=== PATIENT | female | born 1985 | race African-American/Black ===

== ENCOUNTER 2018-06-22 17:44 | Emergency (ER) | payer OTHER ==
--- OUTSIDE RECORDS SUMMARY | 2018-06-22 17:47 | XMS REPORT ---
:1985 [facility] Address [address] [place] [address] Dr. Saeed [address] [place] [id number] Care Team Providers Name Role Phone SATNAM ROGERS Unavailable Unavailable DR CHERELLE VALDEZ Unavailable Unavailable Problems This patient has no known problems. Allergies, Adverse Reactions, Alerts This patient has no known allergies or adverse reactions. Medications This patient has no known medications. Encounters Start End Encounter Admission Attending Care Care Encounter Date/Time Date/Time Type Type Clinicians Facility Department ID 2017-05-21 2017-05-21 Emergency E SARA ROGERS [facility] [id number] 11:16:00 14:14:00 SATNAM 2017-05-20 2017-05-20 Emergency SARA SU [facility] [id number] 10:14:00 10:30:00 CHERELLE
[2018-06-22] MEDS ORDERED: HYDROCODONE/APAP 5/325 MG TAB ONE ×2 (18:52→19:28)
--- NOTE | 2018-06-22 19:01 | ER ---
Nurse's Notes [facility] Name: Winston Hussein Age: 32 yrs Sex: Female : 1985 Arrival Date: 06/22/2018 Time: 17:46 Bed 14 Private MD: Diagnosis: Cyst of Bartholin's gland Presentation: 06/22 18:00 Presenting complaint: Patient states: left labia abscess, unknown if drainage is coming sv from that or vaginal. Pt is 13 weeks . Pt was seen at [facility] on \ Tue and sent home with Clindamycin and Tylenol #3. Transition of care: patient was not received from another setting of care. Onset of symptoms was June 19, 2018. Care prior to arrival: None. 18:00 Method Of Arrival: Ambulatory sv 18:00 Acuity: SINDY 3 sv 18:05 Risk Assessment: Do you want to hurt yourself or someone else? Patient reports no rb1 desire to harm self or others. Initial Sepsis Screen: Does the patient meet any 2 criteria? No. Patient's initial sepsis screen is negative. Does the patient have a suspected source of infection? No. Patient's initial sepsis screen is negative. 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 - Social history:: Smoking status: Patient/guardian denies using tobacco. - Ebola Screening: : No symptoms or risks identified at this time. Screenin:05 Abuse screen: Denies threats or abuse. Nutritional screening: No deficits noted. rb1 Tuberculosis screening: No symptoms or risk factors identified. Fall Risk None identified. Assessment: 18:05 General: Appears uncomfortable, Behavior is calm, cooperative, Denies fever. Pain: rb1 Complains of pain in left labia Pain currently is 10 out of 10 on a pain scale. Pain began 2-3 days ago. Neuro: Level of Consciousness is awake, alert, obeys commands, Oriented to person, place, time, situation. Cardiovascular: Capillary refill < 3 seconds is brisk in bilateral fingers. Respiratory: Airway is patent Respiratory effort is even, unlabored, Respiratory pattern is regular, symmetrical. GI: No signs and/or symptoms were reported involving the gastrointestinal system. : Reports burning with urination. Derm: Skin is dry, Skin is normal, Skin temperature is warm. Musculoskeletal: Swelling present in left labia. 18:05 Reassessment: Pt. saw the doctor on Tuesday and was prescribed antibiotics. rb1 18:50 Reassessment: Patient appears in no apparent distress at this time. Patient and/or rb1 family updated on plan of care and expected duration. Pain level reassessed. Patient is alert, oriented x 3, equal unlabored respirations, skin warm/dry/pink. 19:00 Reassessment: I went in to discharge the pt. and the pt./family asked to speak with the rb1 provider before being discharged. Provider notifiedd. 19:05 Reassessment: TEE Altamirano is at bedside talking with the pt. and family. rb1 Vital Signs: 18:07 BP 125 / 94; Pulse 130; Resp 24; Pulse Ox 100% ; Weight 65.77 kg; Height 5 ft. 3 in. sv (160.02 cm); Pain 0/10; 18:50 BP 132 / 82; Pulse 100; Resp 17; Pulse Ox 100% on R/A; rb1 19:25 BP 114 / 73; Pulse 94; Resp 16; Pulse Ox 100% on R/A; rb1 18:07 Body Mass Index 25.69 (65.77 kg, 160.02 cm) sv ED Course: 17:46 Patient arrived in ED. sb2 18:00 Arm band placed on right wrist. Patient placed in an exam room, on a stretcher. sv 18:04 Valarie Fraga, RN is Primary Nurse. rb1 18:05 Patient has correct armband on for positive identification. Placed in gown. Bed in low rb1 position. Call light in reach. Side rails up X 1. Pulse ox on. NIBP on. Warm blanket given. 18:07 Triage completed. sv 18:17 Elvis Altamirano NP is PHCP. pm1 18:17 Tal Ji MD is Attending Physician. pm1 19:17 pt questions. ERP at bedside for lengthy conversation, question and answer session. ak1 19:30 Patient did not have IV access during this emergency room visit. rb1 Administered Medications: 18:49 Drug: [place] 5 mg-325 mg 1 tabs Route: PO; rb1 19:18 Follow up: Response: No adverse reaction ak1 19:27 Drug: [place] 5 mg-325 mg 1 tabs Route: PO; rb1 19:27 Follow up: Response: Medication administered at discharge. rb1 Outcome: 19:01 Discharge ordered by MD. pm1 19:30 Patient left the ED. rb1 19:30 Discharged to home ambulatory, with family. rb1 19:30 Condition: stable 19:30 Discharge instructions given to patient, Instructed on discharge instructions, follow up and referral plans. Demonstrated understanding of instructions, follow-up care, Prescriptions given X none Signatures: Yuliana Campbell RN RN sv Krenek, Amber, RN RN ak1 Valarie Fraga RN RN rb1 Elvis Altamirano, TEE DAYCARE TEACHER pm1 Angie Pereira2
--- NOTE | 2018-06-22 19:01 | EDPHYS ---
Physician Documentation [facility] Name: Winston Hussein Age: 32 yrs Sex: Female : 1985 Arrival Date: 06/22/2018 Time: 17:46 Bed 14 Private MD: ED Physician Tal Ji HPI: 06/22 18:58 This 32 yrs old Black Female presents to ER via Ambulatory with complaints of pm1 Bartholin's Cyst. 18:58 The patient presents with left sided Bartholin's cyst. Onset: The symptoms/episode pm1 began/occurred 3 day(s) ago. Modifying factors: The symptoms are alleviated by prescription medications, the symptoms are aggravated by touching area. Associated signs and symptoms: Pertinent negatives: dysuria, fever, vaginal bleeding. Severity of symptoms: in the emergency department the symptoms are actually worse. The patient is sexually active. The patient has experienced similar episodes in the past, several times. The patient has been recently seen by a physician: Patient presented to [place] ER on Tuesday for evaluation of Bartholin cyst that started on Tuesday. Patient was prescribed clindamycin at that time. Went to the [place] ER yesterday and was seen by her OB, Dr. Nowak in the ER and was prescribed pain medications, Tylenol #3. Patient scheduled a follow up on Tuesday with Dr. Nowak. Patient with some discharge and was not certain if the Bartholin cyst had ruptured. 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 - Social history:: Smoking status: Patient/guardian denies using tobacco. - Ebola Screening: : No symptoms or risks identified at this time. ROS: 18:58 Positive for left labial swelling and pain, Negative for burning with urination. pm1 18:58 Constitutional: Negative for fever, chills, and weight loss, Eyes: Negative for injury, pain, redness, and discharge, ENT: Negative for injury, pain, and discharge, Neck: Negative for injury, pain, and swelling, Cardiovascular: Negative for chest pain, palpitations, and edema, Respiratory: Negative for shortness of breath, cough, wheezing, and pleuritic chest pain, Abdomen/GI: Negative for abdominal pain, nausea, vomiting, diarrhea, and constipation, Back: Negative for injury and pain, MS/Extremity: Negative for injury and deformity, Skin: Negative for injury, rash, and discoloration, Neuro: Negative for headache, weakness, numbness, tingling, and seizure. Exam: 18:58 Head/Face: Normocephalic, atraumatic. Neck: Trachea midline, no thyromegaly or masses pm1 palpated, and no cervical lymphadenopathy. Supple, full range of motion without nuchal rigidity, or vertebral point tenderness. No Meningismus. Chest/axilla: Normal chest wall appearance and motion. Nontender with no deformity. No lesions are appreciated. Cardiovascular: Regular rate and rhythm with a normal S1 and S2. No gallops, murmurs, or rubs. Normal PMI, no JVD. No pulse deficits. Respiratory: Lungs have equal breath sounds bilaterally, clear to auscultation and percussion. No rales, rhonchi or wheezes noted. No increased work of breathing, no retractions or nasal flaring. Abdomen/GI: Soft, non-tender, with normal bowel sounds. No distension or tympany. No guarding or rebound. No evidence of tenderness throughout. Back: No spinal tenderness. No costovertebral tenderness. Full range of motion. 18:58 Skin: Warm, dry with normal turgor. Normal color with no rashes, no lesions, and no evidence of cellulitis. MS/ Extremity: Pulses equal, no cyanosis. Neurovascular intact. Full, normal range of motion. 18:58 Constitutional: The patient appears in no acute distress, alert, awake, well developed, well hydrated, well groomed, well nourished, uncomfortable. 18:58 : Pelvic Exam: External exam: Bartholin's cyst present, no erythema, no lesions, no ulcerations, no warts seen, discharge, white, BB RN. 18:58 Neuro: Orientation: is normal, Motor: moves all fours. Vital Signs: 18:07 BP 125 / 94; Pulse 130; Resp 24; Pulse Ox 100% ; Weight 65.77 kg; Height 5 ft. 3 in. sv (160.02 cm); Pain 0/10; 18:50 BP 132 / 82; Pulse 100; Resp 17; Pulse Ox 100% on R/A; rb1 19:25 BP 114 / 73; Pulse 94; Resp 16; Pulse Ox 100% on R/A; rb1 18:07 Body Mass Index 25.69 (65.77 kg, 160.02 cm) sv MDM: 18:24 Patient medically screened. pm1 18:58 Data reviewed: vital signs. Data interpreted: Pulse oximetry: on room air is 100 %. pm1 Interpretation: normal. Counseling: I had a detailed discussion with the patient and/or guardian regarding: the historical points, exam findings, and any diagnostic results supporting the discharge/admit diagnosis, the need for outpatient follow up, for definitive care, an OB/Gyne specialist, to return to the emergency department if symptoms worsen or persist or if there are any questions or concerns that arise at home. 19:00 ED course: Patient seen by OB yesterday. Patient currently on abx therapy and has pain pm1 medications at home. Recommended patient to call her OB and schedule an appointment for evaluation sooner. Patient V/S WNLs, drainage of Bartholin's cyst is nonemergent, and patient is currently already on abx, therefore patient can follow up on outpatient evaluation with her OB for definitive treatment. Administered Medications: 18:49 Drug: Justice 5 mg-325 mg 1 tabs Route: PO; rb1 19:18 Follow up: Response: No adverse reaction ak1 19:27 Drug: [place] 5 mg-325 mg 1 tabs Route: PO; rb1 19:27 Follow up: Response: Medication administered at discharge. rb1 Disposition: 06/23 07:27 Co-signature as Attending Physician, Tal Ji MD I agree with the assessment and halie plan of care. Disposition: 06/22/18 19:01 Discharged to Home. Impression: Cyst of Bartholin's gland. - Condition is Stable. - Discharge Instructions: Bartholin Cyst or Abscess. - Medication Reconciliation Form, Thank You Letter, Antibiotic Education, Prescription Opioid Use form. - Follow up: Emergency Department; When: As needed; Reason: Worsening of condition. Follow up: Private Physician; When: 2 - 3 days; Reason: Recheck today's complaints, Continuance of care, Re-evaluation by your physician. - Problem is new. - Symptoms have improved. - Notes: Continue taking the antibiotics and pain medications prescribed to you on Tuesday and Tuesday Signatures: Yuliana Campbell, RN RN Tal Winchester MD MD cha Barber, Rebecca, RN RN rb1 Elvis Altamirano NP POLISHER ALUMINUM pm1 Keisha Redd RN ak1 Corrections: (The following items were deleted from the chart) 06/22 19:30 19:01 06/22/2018 19:01 Discharged to Home. Impression: Cyst of Bartholin's gland. rb1 Condition is Stable. Forms are Medication Reconciliation Form, Thank You Letter, Antibiotic Education, Prescription Opioid Use. Follow up: Emergency Department; When: As needed; Reason: Worsening of condition. Follow up: Private Physician; When: 2 - 3 days; Reason: Recheck today's complaints, Continuance of care, Re-evaluation by your physician. Problem is new. Symptoms have improved. pm1
== END 2018-06-22 19:30 | disposition home or self-care (01) ==
LOC: ER 17:44
DX: N75.0 Cyst of Bartholin's gland (principal)
CPT/HCPCS: 99283

== ENCOUNTER 2018-09-05 17:48 | Emergency (ER) | payer OTHER ==
--- OUTSIDE RECORDS SUMMARY | 2018-09-05 17:51 | XMS REPORT | Summary of Care ---
:1985 Author Organization [facility] Address [address], [place] [address]- Encounter HQ Anjali(TINO) [id number] Date(s): 10/03/15 - 10/03/15 [facility] [address] [place] [address]- Discharge Diagnosis: Streptococcal pharyngitis Discharge Disposition: Home Attending Physician: Son, Satya Burnham DO Vital Signs Most recent to oldest [Reference Range]: 1 2 Height 157.48 cm (10/03/15 8:33 AM) Temperature Oral [96.4-99.1 DegF] 99.0 DegF 97.9 DegF (10/03/15 10:00 AM) (10/03/15 8:33 AM) Blood Pressure [90-140/60-90 mmHg] 101/67 mmHg 111/82 mmHg (10/03/15 10:00 AM) (10/03/15 8:33 AM) Respiratory Rate [14-20 BRMIN] 20 BRMIN 18 BRMIN (10/03/15 10:00 AM) (10/03/15 8:33 AM) Peripheral Pulse Rate [60-100 bpm] 95 bpm 91 bpm (10/03/15 10:00 AM) (10/03/15 8:33 AM) Weight 62.273 kg (10/03/15 8:33 AM) Body Mass Index 25.11 m2 (10/03/15 8:33 AM) Problem List No data available for this section Allergies, Adverse Reactions, Alerts Substance Reaction Severity Status NKDA Active Medications amoxicillin 500 mg oral tablet 500 mg=1 tab, PO, BID, X 10 day, # 20 tab, 0 Refill(s) Start Date: 10/03/15 Stop Date: 10/13/15 Status: Ordered Results IMMUNOLOGY Most recent to oldest [Reference Range]: 1 [place] Scr [Negative] Negative (10/03/15 8:51 AM) RAPID Most recent to oldest [Reference Range]: 1 Grp A Strep Scr [Negative] Positive *ABN* (10/03/15 8:51 AM) Immunizations No data available for this section Procedures Procedure Date Related Diagnosis Body Site section Social History Social History Type Response Smoking Status Never smoker; Exposure to Tobacco Smoke None; Cigarette Smoking Last 365 Days No; Reg Smoking Cessation Counseling No Assessment and Plan No data available for this section
--- OUTSIDE RECORDS SUMMARY | 2018-09-05 17:51 | XMS REPORT | Summary of Care ---
:1985 Author Encounter PATEL Alba(TINO) [id number] Date(s): 04/27/15 - 04/27/15 [facility] [address] [place] [address]- Discharge Diagnosis: Aphthous ulcer Discharge Disposition: Home Physician Attending: Karen Rosenthal DO Vital Signs Most recent to oldest [Reference Range]: 1 Temperature Oral [96.4-99.1 DegF] 97.9 DegF (04/27/15 4:33 PM) Blood Pressure [90-140/60-90 mmHg] 122/75 mmHg (04/27/15 4:33 PM) Respiratory Rate [14-20 BRMIN] 18 BRMIN (04/27/15 4:33 PM) Peripheral Pulse Rate [60-100 bpm] 78 bpm (04/27/15 4:33 PM) Weight 60.364 kg (04/27/15 4:33 PM) Problem List No data available for this section Allergies, Adverse Reactions, Alerts Substance Reaction Severity Status NKDA Active Medications Orajel 10% mucous membrane gel 1 appl, TOP, QID, X 7 day, # 10 gm, 0 Refill(s) Start Date: 04/27/15 Stop Date: 05/04/15 Status: Ordered Results No data available for this section Immunizations No data available for this section Procedures Procedure Date Related Diagnosis Body Site section Social History Social History Type Response Smoking Status Never smoker; Exposure to Tobacco Smoke None; Cigarette Smoking Last 365 Days No; Reg Smoking Cessation Counseling No Assessment and Plan No data available for this section
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
--- OUTSIDE RECORDS SUMMARY | 2018-09-05 17:52 | XMS REPORT ---
:1985 [facility] Address [address] [place] [address] Dr. Saeed [address] [place] [address] Care Team Providers Name Role Phone SATNAM [...] ID 2017-05-21 2017-05-21 Emergency E SARA ROGERS [facility] [id number] 11:16:00 14:14:00 SATNAM 2017-05-20 2017-05-20 Emergency SARA SU [facility] [id number] 10:14:00 10:30:00 CHERELLE
--- OUTSIDE RECORDS SUMMARY | 2018-09-05 17:52 | XMS REPORT | Summary of Care ---
:1985 Author Organization [facility] Address [address] [place], [place] [address]- Encounter HQ Steve_ollie(TINO) [id number] Date(s): 09/08/16 - 09/08/16 [facility] [address] [place] [address]- Discharge Diagnosis: Bartholin's gland abscess Discharge Disposition: Home or Self Care Attending Physician: Warren Casanova MD Vital Signs Most recent to oldest [Reference Range]: 1 2 Height 165.1 cm (09/08/16 1:50 PM) Temperature Oral [96.4-99.1 DegF] 97.9 DegF 97.9 DegF (09/08/16 2:47 PM) (09/08/16 1:50 PM) Blood Pressure [90-140/60-90 mmHg] 103/76 mmHg 112/92 mmHg (09/08/16 2:47 PM) (09/08/16 1:50 PM) Respiratory Rate [14-20 BRMIN] 18 BRMIN 20 BRMIN (09/08/16 2:47 PM) (09/08/16 1:50 PM) Peripheral Pulse Rate [60-100 bpm] 74 bpm 72 bpm (09/08/16 2:47 PM) (09/08/16 1:50 PM) Weight 61.364 kg (09/08/16 1:50 PM) Body Mass Index 22.51 m2 (09/08/16 1:50 PM) Problem List Condition Effective Dates Status Health Status Informant Tooth avulsion(Confirmed) 1992 Resolved Allergies, Adverse Reactions, Alerts Substance Reaction Severity Status NKDA Active Medications Bactrim DS 800 mg- 160 mg oral tablet 1 tab, PO, BID, X 7 day, # 14 tab, 0 Refill(s) Start Date: 09/08/16 Stop Date: 09/15/16 Status: Orderedtramadol 50 mg oral tablet 50 mg=1 tab, PO, BID, X 15 day, # 30 tab, 0 Refill(s) Start Date: 09/08/16 Stop Date: 09/23/16 Status: Ordered Results No data available for [...]
--- OUTSIDE RECORDS SUMMARY | 2018-09-05 17:52 | XMS REPORT | Summary of Care ---
:1985 Author Organization [facility] Address [address], [place] [address]- Encounter HQ Steve_ollie([facility]) [id number] Date(s): 03/05/17 - 03/05/17 [facility] [address] [place] [address]- Discharge Diagnosis: Gingival swelling Discharge Diagnosis: Impacted third molar tooth Discharge Disposition: Home or Self Care Attending Physician: Kali Holbrook MD Vital Signs Most recent to oldest [Reference Range]: 1 2 Temperature Oral [96.4-99.1 DegF] 98.3 DegF 98.8 DegF (03/05/17 5:27 PM) (03/05/17 3:37 PM) Blood Pressure [90-140/60-90 mmHg] 106/71 mmHg 109/73 mmHg (03/05/17 5:27 PM) (03/05/17 3:37 PM) Respiratory Rate [14-20 BRMIN] 20 BRMIN 20 BRMIN (03/05/17 5:27 PM) (03/05/17 3:37 PM) Peripheral Pulse Rate [60-100 bpm] 66 bpm 93 bpm (03/05/17 5:27 PM) (03/05/17 3:37 PM) Weight 63.636 kg (03/05/17 3:37 PM) Problem List Condition Effective Dates Status Health Status Informant Tooth avulsion(Confirmed) 1992 Resolved Allergies, Adverse Reactions, Alerts Substance Reaction Severity Status NKDA Active Medications ibuprofen 800 mg oral tablet 800 mg=1 tab, PO, Q8H, PRN Pain, Take with food, X 7 day, # 21 tab, 0 Refill(s) Start Date: 03/05/17 Stop Date: 03/12/17 Status: Orderedpenicillin V potassium 500 mg oral tablet 500 mg=1 tab, PO, Q6H, X 7 day, # 28 tab, 0 Refill(s) Start Date: 03/05/17 Stop Date: 03/12/17 Status: Ordered Results No data available for [...]
--- OUTSIDE RECORDS SUMMARY | 2018-09-05 17:52 | XMS REPORT | Summary of Care ---
:1985 Author Organization [facility] Address [address], [place] [address]- Encounter HQ Bensonr_ollie(FIN) [id number] Date(s): 05/18/17 - 05/18/17 [facility] [address] [place] [address]- Discharge Disposition: LBTC Left B4 Treatment Cmplt-MSE Cmplt Attending Physician: Warren Casanova MD Vital Signs Most recent to oldest [Reference Range]: 1 Height 157.48 cm (05/18/17 12:07 PM) Temperature Oral [96.4-99.1 DegF] 98.4 DegF (05/18/17 12:07 PM) Blood Pressure [90-140/60-90 mmHg] 112/79 mmHg (05/18/17 12:07 PM) Respiratory Rate [14-20 BRMIN] 20 BRMIN (05/18/17 12:07 PM) Peripheral Pulse Rate [60-100 bpm] 87 bpm (05/18/17 12:07 PM) Weight 65.909 kg (05/18/17 12:07 PM) Body Mass Index 26.58 m2 (05/18/17 12:07 PM) Problem List Condition Effective Dates Status Health Status Informant Tooth avulsion(Confirmed) 1992 Resolved Allergies, Adverse Reactions, Alerts Substance Reaction Severity Status NKDA Active Medications morphine Sulfate 4 mg, Route: IM, ONCE, Dosing Weight 65.909, kg, Start date: 05/18/17 13:07:00 CDT, Stop date: 05/18/17 13:07:00 CDT Start Date: 05/18/17 Stop Date: 05/18/17 Status: Discontinuedmorphine Sulfate 4 mg, Route: IVP, ONCE, Dosing Weight 65.909, kg, Priority: STAT, Start date: 12:24:00 CDT,Stop date: 05/18/17 12:24:00 CDT Start Date: 05/18/17 Stop Date: 05/18/17 Status: Discontinued Results No data available for this section [...]
--- OUTSIDE RECORDS SUMMARY | 2018-09-05 17:52 | XMS REPORT | Summary of Care ---
:1985 Author Organization [facility] Address [address], [place] [address]- Encounter HQ Anjali(TINO) [id number] Date(s): 01/13/16 - 01/13/16 [facility] [address] [place] [address]- Discharge Diagnosis: Knee pain Discharge Diagnosis: Back pain Discharge Disposition: Home Attending Physician: Esequiel Lucas MD Vital Signs Most recent to oldest [Reference Range]: 1 2 Temperature Oral [96.4-99.1 DegF] 98.0 DegF 98.6 DegF (01/13/16 10:00 AM) (01/13/16 8:27 AM) Blood Pressure [90-140/60-90 mmHg] 99/61 mmHg 124/88 mmHg (01/13/16 10:00 AM) (01/13/16 8:27 AM) Respiratory Rate [14-20 BRMIN] 18 BRMIN 18 BRMIN (01/13/16 10:00 AM) (01/13/16 8:27 AM) Peripheral Pulse Rate [60-100 bpm] 87 bpm 96 bpm (01/13/16 10:00 AM) (01/13/16 8:27 AM) Weight 63.636 kg (01/13/16 8:27 AM) Problem List Condition Effective Dates Status Health Status Informant Tooth avulsion(Confirmed) 1992 Resolved Allergies, Adverse Reactions, Alerts Substance Reaction Severity Status NKDA Active Medications Flexeril 10 mg oral tablet 10 mg, PO, TID, PRN Muscle Spasm, X 10 day, # 30 tab, 0 Refill(s), Pharmacy: [facility] [id number] Start Date: 01/13/16 Stop Date: 01/23/16 Status: Ordered Results No data available for [...]
--- NOTE | 2018-09-05 18:36 | EDPHYS ---
Physician Documentation [facility] Name: Winston Hussein Age: 33 yrs Sex: Female : 1985 Arrival Date: 09/05/2018 Time: 17:54 Bed 9 Private MD: ED Physician Roverto Moon HPI: 09/05 18:30 This 33 yrs old Black Female presents to ER via Wheelchair with complaints of Leg Pain. rn 18:30 The patient presents with pain. The complaints affect the right gluteus. Onset: The rn symptoms/episode began/occurred 1 week(s) ago. Modifying factors: The symptoms are alleviated by OTC meds, remaining still, the symptoms are aggravated by weight bearing. Severity of symptoms: At their worst the symptoms were mild, in the emergency department the symptoms have improved. The patient has not experienced similar symptoms in the past. Reports 1 week intermittent right gluteal pain, worse sometimes when walking, no fever, no trauma, no weakness/numbness, no back pain, no skin changes, saw her doctor, told was pinched nerve, still feeling it so came in for eval. . 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 - Social history:: Smoking status: Patient/guardian denies using tobacco. - Ebola Screening: : Patient negative for fever greater than or equal to 101.5 degrees Fahrenheit, and additional compatible Ebola Virus Disease symptoms Patient denies exposure to infectious person Patient denies travel to an Ebola-affected area in the 21 days before illness onset No symptoms or risks identified at this time. - Family history:: not pertinent. - Hospitalizations: : No recent hospitalization is reported. ROS: 18:30 Constitutional: Negative for fever, chills, and weight loss, Eyes: Negative for injury, rn pain, redness, and discharge, Neck: Negative for injury, pain, and swelling, Cardiovascular: Negative for chest pain, palpitations, and edema, Respiratory: Negative for shortness of breath, cough, wheezing, and pleuritic chest pain, Abdomen/GI: Negative for abdominal pain, nausea, vomiting, diarrhea, and constipation, Back: Negative for injury and pain, MS/Extremity: Negative for injury and deformity, Skin: Negative for injury, rash, and discoloration, Neuro: Negative for headache, weakness, numbness, tingling, and seizure. Exam: 18:30 Constitutional: This is a well developed, well nourished patient who is awake, alert, rn and in no acute distress. Abdomen/GI: soft, non-tender, gravid uterus Skin: Warm, dry with normal turgor. Normal color with no rashes, no lesions, and no evidence of cellulitis. MS/ Extremity: Pulses equal, no cyanosis. Neurovascular intact. Full, normal range of motion. Equal circumference. NO pain at all with ROM of right leg (flexion or extension or rotation). Neuro: Awake and alert, GCS 15, oriented to person, place, time, and situation. Cranial nerves II-XII grossly intact. Motor strength 5/5 in all extremities. Sensory grossly intact. Cerebellar exam normal. Normal gait. Vital Signs: 18:21 BP 115 / 81; Pulse 76; Resp 14; Temp 98.2; Pulse Ox 99% on R/A; Weight 79.38 kg; Height ch 5 ft. 6 in. (167.64 cm); Pain 10/10; 18:21 Body Mass Index 28.25 (79.38 kg, 167.64 cm) ch MDM: 18:25 Patient medically screened. jr8 18:30 Differential diagnosis: muscle spasm, pinched nerve, radiculopathy. Data reviewed: rn vital signs, nurses notes, and as a result, I will discharge patient. Counseling: I had a detailed discussion with the patient and/or guardian regarding: the historical points, exam findings, and any diagnostic results supporting the discharge/admit diagnosis, the need for outpatient follow up, to return to the emergency department if symptoms worsen or persist or if there are any questions or concerns that arise at home. Special discussion: I discussed with the patient/guardian in detail that at this point there is no indication for admission to the hospital. It is understood, however, that if the symptoms persist or worsen the patient needs to return immediately for re-evaluation. Administered Medications: No medications were administered Disposition: 09/05/18 18:35 Discharged to Home. Impression: Pain in right leg. - Condition is Stable. - Discharge Instructions: Musculoskeletal Pain, Pain Without a Known Cause. - Medication Reconciliation Form, Thank You Letter, Antibiotic Education, Prescription Opioid Use form. - Follow up: Private Physician; When: As needed; Reason: Recheck today's complaints, Re-evaluation by your physician. - Problem is new. - Symptoms have improved. Signatures: Lily Liu RN RN Roverto Moon MD MD rn Roszak, Josh, PA PA [facility] Kera Lester RN RN hb Corrections: (The following items were deleted from the chart) 18:50 18:35 09/05/2018 18:35 Discharged to Home. Impression: Pain in right leg. Condition is hb Stable. Forms are Medication Reconciliation Form, Thank You Letter, Antibiotic Education, Prescription Opioid Use. Follow up: Private Physician; When: As needed; Reason: Recheck today's complaints, Re-evaluation by your physician. Problem is new. Symptoms have improved. rn
--- NOTE | 2018-09-05 18:36 | ER ---
Nurse's Notes [facility] Name: Winston Hussein Age: 33 yrs Sex: Female : 1985 Arrival Date: 09/05/2018 Time: 17:54 Bed 9 Private MD: Diagnosis: Pain in right leg Presentation: 09/05 18:20 Presenting complaint: Patient states: pain in my R buttock, started last week, hurts ch all down my leg and I cannot walk on it. I am , LMP April 2018. Transition of care: patient was not received from another setting of care. Onset of symptoms was August 29, 2018. Risk Assessment: Do you want to hurt yourself or someone else? Patient reports no desire to harm self or others. Initial Sepsis Screen: Does the patient meet any 2 criteria? No. Patient's initial sepsis screen is negative. Does the patient have a suspected source of infection? No. Patient's initial sepsis screen is negative. Care prior to arrival: None. 18:20 Method Of Arrival: Wheelchair 18:20 Acuity: SINDY 5 ch Triage Assessment: 18:21 General: Appears in no apparent distress. comfortable, Behavior is calm, cooperative, ch appropriate for age. 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 - Social history:: Smoking status: Patient/guardian denies using tobacco. - Ebola Screening: : Patient negative for fever greater than or equal to 101.5 degrees Fahrenheit, and additional compatible Ebola Virus Disease symptoms Patient denies exposure to infectious person Patient denies travel to an Ebola-affected area in the 21 days before illness onset No symptoms or risks identified at this time. - Family history:: not pertinent. - Hospitalizations: : No recent hospitalization is reported. Vital Signs: 18:21 BP 115 / 81; Pulse 76; Resp 14; Temp 98.2; Pulse Ox 99% on R/A; Weight 79.38 kg; Height 5 ft. 6 in. (167.64 cm); Pain 10/10; 18:21 Body Mass Index 28.25 (79.38 kg, 167.64 cm) ED Course: 17:54 Patient arrived in ED. mr 18:21 Triage completed. 18:21 Arm band placed on left wrist. Patient placed in an exam room, on a stretcher. 18:25 Arvin Gramajo PA is PHCP. jr8 18:25 Tal Ji MD is Attending Physician. jr8 18:29 Roverto Moon MD is Attending Physician. jr8 Administered Medications: No medications were administered Outcome: 18:35 Discharge ordered by . rn 18:50 Patient left the ED. hb Signatures: Lily Liu, RN RN SalNancy mr Roverto Moon MD MD rn Roszak, Josh, PA PA [facility] Kera Lester RN RN hb
== END 2018-09-05 18:50 | disposition home or self-care (01) ==
LOC: ER 17:48
DX: M79.604 Pain in right leg (principal)
CPT/HCPCS: 99281

== ENCOUNTER 2019-02-09 11:01 | Emergency (ER) | payer OTHER ==
--- OUTSIDE RECORDS SUMMARY | 2019-02-09 11:04 | XMS REPORT | Continuity of Care Document ---
[...] day, # 30 tab, 0 Refill(s), Pharmacy: [facility] [id number] naproxen 500 mg 500 mg=1 Active [place] [...] Impression: 1. No acute osseous abnormality. IMMUNOLOGY [place] Scr Negative Negative 10/03 /2014 [place] (10/03/15 8:51 AM) [place] RAPID Grp A Positive Negative 10/03 St[place] Scr /2014 [place] *ABN* [place] (10/03/15 8:51 AM) Vital Signs Vital Sign Value Date Comments Source BMI Calculated 26.58 05/18/2017 [place] Height 157.48 cm 05/18/2017 [place] Weight 65.909 05/18/2017 [place] Heart Rate 87 05/18/2017 [place] Respitory Rate 05/18/2017 [place] Systolic (mm Hg) 112 05/18/2017 [facility] [place] Diastolic (mm Hg) 79 05/18/2017 [place] Temperature Oral (F) 98.4 F 05/18/2017 [place] Heart Rate 66 03/05/2017 [place] Respitory Rate 20 03/05/2017 [place] Temperature Oral (F) 98.3 F 03/05/2017 [facility] [place] Systolic (mm Hg) 106 03/05/2017 [facility] [place] Diastolic (mm Hg) 71 03/05/2017 [place] Weight 63.636 03/05/2017 [place] Respitory Rate 20 03/05/2017 [place] Systolic (mm Hg) 109 03/05/2017 [facility] [place] Diastolic (mm Hg) 73 03/05/2017 [place] Heart Rate 93 03/05/2017 [place] Temperature Oral (F) 98.8 F 03/05/2017 [place] Heart Rate 74 09/08/2016 [place] Temperature Oral (F) 97.9 F 09/08/2016 [facility] [place] Systolic (mm Hg) 103 09/08/2016 [facility] [place] Diastolic (mm Hg) 76 09/08/2016 [place] Respitory Rate 18 09/08/2016 [place] Weight 61.364 09/08/2016 [place] BMI Calculated 22.51 09/08/2016 [place] Height 165.1 cm 09/08/2016 [place] Respitory Rate 20 09/08/2016 [place] Temperature Oral (F) 97.9 F 09/08/2016 [place] Heart Rate 72 09/08/2016 [facility] [place] Systolic (mm Hg) 112 09/08/2016 [place] Diastolic (mm Hg) 92 09/08/2016 [place] Heart Rate 87 01/13/2016 [place] Systolic (mm Hg) 99 01/13/2016 [place] Diastolic (mm Hg) 61 01/13/2016 [place] Respitory Rate 18 01/13/2016 [place] Temperature Oral (F) 98.0 F 01/13/2016 [place] Weight 63.636 01/13/2016 [place] Temperature Oral (F) 98.6 F 01/13/2016 [facility] [place] Systolic (mm Hg) 124 01/13/2016 [place] Diastolic (mm Hg) 88 01/13/2016 [place] Respitory Rate 18 01/13/2016 [place] Heart Rate 96 01/13/2016 [place] Weight 60 10/28/2015 [place] BMI Calculated 23.43 10/28/2015 [place] Heart Rate 81 10/28/2015 [place] Respitory Rate 18 10/28/2015 [facility] [place] Systolic (mm Hg) 106 10/28/2015 [facility] [place] Diastolic (mm Hg) 78 10/28/2015 [place] Height 160.02 cm 10/28/2015 [place] Temperature Oral (F) 98.5 F 10/28/2015 [place] Temperature Oral (F) 99.0 F 10/03/2015 [place] Respitory Rate 20 10/03/2015 [place] Heart Rate 95 10/03/2015 [facility] [place] Systolic (mm Hg) 101 10/03/2015 [facility] [place] Diastolic (mm Hg) 67 10/03/2015 [place] Weight 62.273 10/03/2015 [place] Heart Rate 91 10/03/2015 [place] Respitory Rate 18 10/03/2015 [place] BMI Calculated 25.11 10/03/2015 [place] Temperature Oral (F) 97.9 F 10/03/2015 [place] Height 157.48 cm 10/03/2015 [place] Systolic (mm Hg) 111 10/03/2015 [place] Diastolic (mm Hg) 82 10/03/2015 [place] Weight 60.364 04/27/2015 [place] Temperature Oral (F) 97.9 F 04/27/2015 [place] Systolic (mm Hg) 122 04/27/2015 [place] Diastolic (mm Hg) 75 04/27/2015 [place] Heart Rate 78 04/27/2015 [place] Respitory Rate 18 04/27/2015 [place] Encounters Location Location Encounter Encounter Reason Attending ADM DC Status Source Details Type Number For Provider Date Date [facility] [id number] Karen Rosenthal 04/27 04/27 [place] [facility] /2014 [place] [facility] [place] [id number] Satya Son 10/03 10/03 [place] [facility] /2014 [facility] [place] [facility] EC [id number] Satya Son 10/28 10/28 [facility] Emergency /2014 [place] [facility] [place] [id number] Esequiel Lucas 01/13 01/13 [facility] [id number] Warren 09/08 09/08 [facility] [id number] Kali 03/05 03/05 Pablo Holbrook /2016 [facility] [place] [facility] Emergency [id number] Warren 05/18 05/18 [place] Casanova /2016 [facility] [place] Procedures Procedure Code Date Perfomer Comments Source section [id number] [place]
--- OUTSIDE RECORDS SUMMARY | 2019-02-09 11:05 | XMS REPORT ---
:1985 [facility] Address [address] [place] [address] Dr. Saeed [address] [place] [address] Care Team Providers Name Role Phone SATNAM [...] ID 2017-05-21 2017-05-21 Emergency E SARA ROGERS [facility] [id number] 11:16:00 14:14:00 SATNAM 2017-05-20 2017-05-20 Emergency SARA SU [facility] [id number] 10:14:00 10:30:00 CHERELLE
--- NOTE | 2019-02-09 12:03 | ER ---
Nurse's Notes [facility] Name: Winston Hussein Age: 33 yrs Sex: Female : 1985 Arrival Date: 02/09/2019 Time: 11:03 Bed 9 Private MD: Diagnosis: Acute pharyngitis Presentation: 02/09 11:07 Presenting complaint: Patient states: sore throat since yesterdays. Transition of care: patient was not received from another setting of care. Onset of symptoms was February 08, 2019 at 18:00. Risk Assessment: Do you want to hurt yourself or someone else? Patient reports no desire to harm self or others. Initial Sepsis Screen: Does the patient meet any 2 criteria? No. Patient's initial sepsis screen is negative. Does the patient have a suspected source of infection? No. Patient's initial sepsis screen is negative. Care prior to arrival: None. 11:07 Method Of Arrival: Ambulatory 11:07 Acuity: SINDY 4 ch Triage Assessment: 11:08 General: Appears in no apparent distress. comfortable, Behavior is calm, cooperative, ch appropriate for age. Pain: Complains of pain in throat Pain currently is 8 out of 10 on a pain scale. EENT: Reports pain when swallowing. 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 - Social history:: Smoking status: Patient/guardian denies using tobacco, Patient/guardian denies using alcohol, street drugs. - Ebola Screening: : Patient negative for fever greater than or equal to 101.5 degrees Fahrenheit, and additional compatible Ebola Virus Disease symptoms Patient denies exposure to infectious person Patient denies travel to an Ebola-affected area in the 21 days before illness onset No symptoms or risks identified at this time. Screenin:15 Abuse screen: Denies threats or abuse. Denies injuries from another. Nutritional iw screening: No deficits noted. Tuberculosis screening: No symptoms or risk factors identified. Fall Risk None identified. Assessment: 11:15 Respiratory: Airway Breath sounds are clear. iw 11:15 General: Appears in no apparent distress. comfortable. Neuro: Level of Consciousness is iw awake, alert, obeys commands, Aboriginal Community Council Member are equal bilaterally. Respiratory: Respiratory effort is even, unlabored. EENT: Throat is reddened with gag reflex present. Vital Signs: 11:08 BP 130 / 95; Pulse 83; Resp 16; Temp 99; Pulse Ox 100% on R/A; Weight 69.85 kg; Height 5 ft. 3 in. (160.02 cm); Pain 8/10; 11:08 Body Mass Index 27.28 (69.85 kg, 160.02 cm) ED Course: 11:03 Patient arrived in ED. as 11:05 Chery Morocho FNP-C [facility]. kb 11:05 Tal Ji MD is Attending Physician. kb 11:08 Triage completed. ch 11:08 Arm band placed on left wrist. Patient placed in an exam room. 11:15 Patient has correct armband on for positive identification. Bed in low position. Call iw light in reach. 11:15 Flu Sent. iw 11:15 Strep Sent. iw 11:15 No provider procedures requiring assistance completed. Patient did not have IV access iw during this emergency room visit. 11:59 Eleanor Holbrook, RN is Primary Nurse. iw Administered Medications: No medications were administered Outcome: 12:02 Discharge ordered by . kb 12:10 Discharged to home ambulatory. iw 12:10 Condition: good 12:10 Discharge instructions given to patient, Instructed on discharge instructions, follow up and referral plans. Demonstrated understanding of instructions, follow-up care. 12:12 Patient left the ED. iw Signatures: Chery Morocho FNP-C FNP-Ckb Hammond, Christina, RN RN Bhavya Joseph as Eleanor Holbrook, RN RN iw
--- NOTE | 2019-02-09 12:03 | EDPHYS ---
Physician Documentation [facility] Name: Winston Hussein Age: 33 yrs Sex: Female : 1985 Arrival Date: 02/09/2019 Time: 11:03 Bed 9 Private MD: ED Physician Tal Ji HPI: 02/09 11:33 This 33 yrs old Black Female presents to ER via Ambulatory with complaints of Sore kb Throat. 11:33 The patient presents with sore throat. The patient describes throat pain as constant. kb Onset: The symptoms/episode began/occurred yesterday. Severity of symptoms: At their worst the symptoms were moderate, in the emergency department the symptoms are unchanged. Modifying factors: The symptoms are alleviated by nothing, the symptoms are aggravated by swallowing, Patient's oral intake status: good Denies contact with similarly ill indivduals. Associated signs and symptoms: Pertinent positives: cough, Sore throat Pertinent negatives chest pain, chills, diarrhea, dysphagia, earache, fever, flu-like symptoms, headache, nausea, rhinorrhea, shortness of breath, vomiting. The patient has not experienced similar symptoms in the past. The patient has not recently seen a physician. 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 - Social history:: Smoking status: Patient/guardian denies using tobacco, Patient/guardian denies using alcohol, street drugs. - Ebola Screening: : Patient negative for fever greater than or equal to 101.5 degrees Fahrenheit, and additional compatible Ebola Virus Disease symptoms Patient denies exposure to infectious person Patient denies travel to an Ebola-affected area in the 21 days before illness onset No symptoms or risks identified at this time. ROS: 11:33 Constitutional: Negative for fever, chills, and weight loss, Neck: Negative for injury, kb pain, and swelling, Cardiovascular: Negative for chest pain, palpitations, and edema, Abdomen/GI: Negative for abdominal pain, nausea, vomiting, diarrhea, and constipation, Back: Negative for injury and pain, : Negative for injury, bleeding, discharge, and swelling, MS/Extremity: Negative for injury and deformity, Skin: Negative for injury, rash, and discoloration, Neuro: Negative for headache, weakness, numbness, tingling, and seizure. 11:33 ENT: Positive for sore throat. 11:33 Respiratory: Positive for cough, Negative for dyspnea on exertion, hemoptysis, orthopnea, pleurisy, shortness of breath, sputum production, wheezing. Exam: 11:34 Constitutional: This is a well developed, well nourished patient who is awake, alert, kb and in no acute distress. Head/Face: Normocephalic, atraumatic. Neck: Trachea midline, no thyromegaly or masses palpated, and no cervical lymphadenopathy. Supple, full range of motion without nuchal rigidity, or vertebral point tenderness. No Meningismus. Chest/axilla: Normal chest wall appearance and motion. Nontender with no deformity. No lesions are appreciated. Cardiovascular: Regular rate and rhythm with a normal S1 and S2. No gallops, murmurs, or rubs. Normal PMI, no JVD. No pulse deficits. Respiratory: Lungs have equal breath sounds bilaterally, clear to auscultation and percussion. No rales, rhonchi or wheezes noted. No increased work of breathing, no retractions or nasal flaring. Abdomen/GI: Soft, non-tender, with normal bowel sounds. No distension or tympany. No guarding or rebound. No evidence of tenderness throughout. Skin: Warm, dry with normal turgor. Normal color with no rashes, no lesions, and no evidence of cellulitis. MS/ Extremity: Pulses equal, no cyanosis. Neurovascular intact. Full, normal range of motion. Neuro: Awake and alert, GCS 15, oriented to person, place, time, and situation. Cranial nerves II-XII grossly intact. Motor strength 5/5 in all extremities. Sensory grossly intact. Cerebellar exam normal. Normal gait. 11:34 ENT: Posterior pharynx: Airway: normal, no evidence of obstruction, Tonsils: bilaterally enlarged, with erythema, Uvula: normal, midline, swelling, that is mild, erythema, that is moderate, exudate, is not appreciated. Vital Signs: 11:08 BP 130 / 95; Pulse 83; Resp 16; Temp 99; Pulse Ox 100% on R/A; Weight 69.85 kg; Height ch 5 ft. 3 in. (160.02 cm); Pain 8/10; 11:08 Body Mass Index 27.28 (69.85 kg, 160.02 cm) [facility]: 11:10 Patient medically screened. kb 11:34 Data reviewed: vital signs, nurses notes. Data interpreted: Pulse oximetry: on room air kb is 100 %. Interpretation: normal. 12:01 Counseling: I had a detailed discussion with the patient and/or guardian regarding: the kb historical points, exam findings, and any diagnostic results supporting the discharge/admit diagnosis, lab results, the need for outpatient follow up, a family practitioner, to return to the emergency department if symptoms worsen or persist or if there are any questions or concerns that arise at home. 02/09 11:13 Order name: Strep; Complete Time: 11:57 kb 02/09 11:13 Order name: Flu; Complete Time: 11:57 kb 02/09 11:52 Order name: Throat Culture EDMS Administered Medications: No medications were administered Disposition: 12:36 Co-signature as Attending Physician, Tal Ji MD I agree with the assessment and [facility] plan of care. Disposition: 02/09/19 12:02 Discharged to Home. Impression: Acute pharyngitis. - Condition is Stable. - Discharge Instructions: Pharyngitis, [id number], Viral Respiratory Infection, [id number], Sore Throat, [id number]. - Medication Reconciliation Form, Thank You Letter, Antibiotic Education, Prescription Opioid Use, Work release form form. - Follow up: Emergency Department; When: As needed; Reason: Worsening of condition. Follow up: Private Physician; When: 2 - 3 days; Reason: Recheck today's complaints, Continuance of care, Re-evaluation by your physician. Signatures: Dispatcher [employer] EDChery Jc, ASHLEY FLOYD-Lily Busch RN Tal Treviño ch, MD MD cha Williams, Irene, RN RN iw Corrections: (The following items were deleted from the chart) 12:12 12:02 02/09/2019 12:02 Discharged to Home. Impression: Acute pharyngitis. Condition is iw Stable. Forms are Medication Reconciliation Form, Thank You Letter, Antibiotic Education, Prescription Opioid Use. Follow up: Emergency Department; When: As needed; Reason: Worsening of condition. Follow up: Private Physician; When: 2 - 3 days; Reason: Recheck today's complaints, Continuance of care, Re-evaluation by your physician. kb
[2019-02-09] MEDS ORDERED: HYDROCODONE/CHLORPHEN 5 ML/OSYR ONE (12:21)
== END 2019-02-09 12:12 | disposition home or self-care (01) ==
LOC: ER 11:01
DX: J02.9 Acute pharyngitis, unspecified (principal)
CPT/HCPCS: 87070; 87081; 87804; 99283

== ENCOUNTER 2019-08-03 08:26 | Emergency (ER) | payer OTHER ==
--- OUTSIDE RECORDS SUMMARY | 2019-08-03 08:30 | XMS REPORT | Continuity of Care Document ---
:1985 Author Organization [employer] Care Team Providers Name Role Phone [employer] Unavailable Unavailable Problems Problem Status Onset Classification Date Comments Source Date Reported Localized 03/05/20 03/08/2017 [place] swelling, mass 17 [place] and lump, head Impacted teeth 03/05/20 03/08/2017 [place] MOUTH PAIN Active 03/05/20 [facility] [place] [...] 04/30/2015 [place] Diagnosis: 15 [place] Aphthous ulcer Complete avulsion Resolved 11/21/18 Problem 05/21/2017 [place] of tooth 93 [place] (disorder) Medications Medication Details Route Status Patient Ordering [...] CDT ibuprofen 800 mg 800 mg=1 Active [facility] [place] oral tablet tab, PO, 017 [place] Q8H, PRN Pain, Take with food, X 7 day, # 21 tab, 0 Refill(s) Penicillin V 500 mg=1 Active [facility] [place] Potassium 500 MG tab, PO, 017 [place] Oral Tablet Q6H, X 7 day, # 28 tab, 0 Refill(s) tramadol 50 mg=1 Active [facility] [place] hydrochloride 50 tab, PO, 016 [place] MG Oral Tablet BID, X 15 day, # 30 tab, 0 Refill(s) Sulfamethoxazole 1 tab, PO, Active [facility] [place] 800 MG / BID, X 7 016 [place] Trimethoprim 160 day, # 14 MG Oral Tablet tab, 0 [Bactrim] Refill(s) Cyclobenzaprine 10 mg, PO, Active [facility] [place] hydrochloride 10 TID, PRN 016 [place] MG Oral Tablet Muscle [Flexeril] Spasm, X 10 day, # 30 tab, 0 Refill(s), Pharmacy: [facility] [address] naproxen 500 mg 500 mg=1 Active [facility] [place] oral tablet tab, PO, 015 [place] BID, PRN Pain, # 14 tab, 0 Refill(s) amoxicillin 875 mg 875 mg=1 Active [facility] [place] oral tablet tab, PO, 015 [place] BID, # 14 tab, 0 Refill(s) Acetaminophen 300 1 tab, PO, Active [facility] [place] MG / Codeine Q6H, PRN 015 [place] Phosphate 30 MG Pain, # 15 Oral Tablet tab, 0 [Tylenol with Refill(s) Codeine #3] amoxicillin 500 mg 500 mg=1 Active [facility] [place] oral tablet tab, PO, 015 [place] BID, X 10 day, # 20 tab, 0 Refill(s) Benzocaine 0.1 1 appl, Active [facility] [place] MG/MG Oral Gel TOP, QID, X 015 [place] [Orajel] 7 day, # 10 gm, 0 Refill(s) Allergies, Adverse Reactions, Alerts No Known Medication Allergies Immunizations No Data Provided for This Section Results Order Name Results Value Reference Date Interpretation Comments Source Range IMMUNOLOGY [place] Scr Negative Negative [place] (10/03/15 8:51 AM) 2015 [place] RAPID Grp A Positive Negative [place] Strep Scr *ABN* 2014 [place] (10/03/15 8:51 AM) Pathology Reports No Data Provided for This Section Diagnostic Reports Report Value Date Source Spine lumbar series Lumbar spine series 5 views, 01/13/2016 01/13/2016 [place] DX HISTORY: Low back pain, injury. Multiple views of the lumbar spine demonstrate no disc space narrowing, fracture or other significant abnormality. IMPRESSION: Normal lumbar spine series. Knee series 3 views Right knee 3 views 01/13/2016 [place] DX Comparison: No prior exam. Findings: No fracture is identified. No radiopaque foreign body is identified. Impression: 1. No acute osseous abnormality. Consultation Notes No Data Provided for This Section Discharge Summaries No Data Provided for This Section History and Physicals No Data Provided for This Section Vital Signs Vital Sign Value Date Comments Source BMI Calculated 26.58 05/18/2017 [place] Height 157.48 cm 05/18/2017 [place] Weight 65.909 05/18/2017 [place] Heart Rate 87 05/18/2017 [place] Respitory Rate 20 05/18/2017 [place] Systolic (mm Hg) 112 05/18/2017 [place] Diastolic (mm Hg) 79 05/18/2017 [place] Temperature Oral (F) 98.4 F 05/18/2017 [place] Heart Rate 66 03/05/2017 [place] Respitory Rate 20 03/05/2017 [place] Temperature Oral (F) 98.3 F 03/05/2017 [place] Systolic (mm Hg) 106 03/05/2017 [facility] [place] Diastolic (mm Hg) 71 03/05/2017 [place] Weight 63.636 03/05/2017 [place] Respitory Rate 20 03/05/2017 [facility] [place] Systolic (mm Hg) 109 03/05/2017 [place] Diastolic (mm Hg) 73 03/05/2017 [place] Heart Rate 93 03/05/2017 [place] Temperature Oral (F) 98.8 F 03/05/2017 [facility] [place] Heart Rate 74 09/08/2016 [place] Temperature Oral (F) 97.9 F 09/08/2016 [place] Systolic (mm Hg) 103 09/08/2016 [place] Diastolic (mm Hg) 76 09/08/2016 [place] Respitory Rate 18 09/08/2016 [place] Weight 61.364 09/08/2016 [place] BMI Calculated 22.51 09/08/2016 [place] Height 165.1 cm 09/08/2016 [place] Respitory Rate 20 09/08/2016 [place] Temperature Oral (F) 97.9 F 09/08/2016 [place] Heart Rate 72 09/08/2016 [facility] [place] Systolic (mm Hg) 112 09/08/2016 [facility] [place] Diastolic (mm Hg) 92 09/08/2016 [place] Heart Rate 87 01/13/2016 [place] Systolic (mm Hg) 99 01/13/2016 [facility] [place] Diastolic (mm Hg) 61 01/13/2016 [place] Respitory Rate 18 01/13/2016 [place] Temperature Oral (F) 98.0 F 01/13/2016 [place] Weight 63.636 01/13/2016 [place] Temperature Oral (F) 98.6 F 01/13/2016 [place] Systolic (mm Hg) 124 01/13/2016 [place] Diastolic (mm Hg) 88 01/13/2016 [place] Respitory Rate 18 01/13/2016 [place] Heart Rate 96 01/13/2016 [place] Weight 60 10/28/2015 [place] BMI Calculated 23.43 10/28/2015 [place] Heart Rate 81 10/28/2015 [place] Respitory Rate 18 10/28/2015 [place] Systolic (mm Hg) 106 10/28/2015 [facility] [place] Diastolic (mm Hg) 78 10/28/2015 [place] Height 160.02 cm 10/28/2015 [place] Temperature Oral (F) 98.5 F 10/28/2015 [place] Temperature Oral (F) 99.0 F 10/03/2015 [place] Respitory Rate 20 10/03/2015 [place] Heart Rate 95 10/03/2015 [facility] [place] Systolic (mm Hg) 101 10/03/2015 [place] Diastolic (mm Hg) 67 10/03/2015 [place] Weight 62.273 10/03/2015 [place] Heart Rate 91 10/03/2015 [place] Respitory Rate 18 10/03/2015 [place] BMI Calculated 25.11 10/03/2015 [place] Temperature Oral (F) 97.9 F 10/03/2015 [place] Height 157.48 cm 10/03/2015 [place] Systolic (mm Hg) 111 10/03/2015 [place] Diastolic (mm Hg) 82 10/03/2015 [place] Weight 60.364 04/27/2015 [place] Temperature Oral (F) 97.9 F 04/27/2015 [place] Systolic (mm Hg) 122 04/27/2015 [place] Diastolic (mm Hg) 75 04/27/2015 [place] Heart Rate 78 04/27/2015 [place] Respitory Rate 18 04/27/2015 [place] Encounters Location Location Encounter Encounter Reason Attending ADM DC Status Source Details Type Number For Provider Date Date [facility] [place] [id number] Karen Rosenthal 04/27 04/27 [facility]2014 [place] [facility] [place] [id number] Satya Son 10/03 10/03 [facility] Emergency /2014 [facility] [place] [facility] [place] [id number] Satya Son 10/28 10/28 [facility] Emergency /2014 [place] [facility] [place] [id number] Esequiel Shayy 01/13 01/13 [facility] Emergency /2015 [facility] [place] [facility] Emergency [id number] [place] 09/08 09/08 Pablo Rangelse /2015 [place] [facility] Emergency [id number] Kali 03/05 03/05 Pablo Holbrook /2016 [place] [facility] Emergency [id number] [place] 05/18 05/18 Pablo Casanova /2016 [facility] [place] Procedures Procedure Code Date Perfomer Comments Source section [id number] [place] Assessment and Plan No Data Provided for This Section Plan of Care No Data Provided for This Section Social History Social History Date Source Social History TypeResponse 03/05/2017 [place] Smoking Status Never smoker; Exposure to Tobacco Smoke None; Cigarette Smoking Last 365 Days No; Reg Smoking Cessation Counseling No Family History No Data Provided for This Section Advance Directives No Data Provided for This Section Functional Status No Data Provided for This Section
--- OUTSIDE RECORDS SUMMARY | 2019-08-03 08:31 | XMS REPORT ---
:1985 [facility] [address] [place] [address] Dr. Saeed [address] [place] [id number] Care Team Providers Name Role Phone SATNAM [...] ID 2017-05-21 2017-05-21 Emergency E [facility] [id number] 11:16:00 14:14:00 SATNAM 2017-05-20 2017-05-20 Emergency [facility] [id number] 10:14:00 10:30:00 CHERELLE
[2019-08-03 09:31] LABS: Absolute Lymphocytes (CBC) 0.8 K/uL (0.7-4.9); Basophils % 0.4 % (0-1.3); Hematocrit 35.2 % (36.0-45.0); Lymphocytes % 12.1 % (15.3-44.8); MPV 8.8 fL (7.6-11.3); RBC Red Blood Cell Count 4.82 M/uL (3.86-4.86)
[2019-08-03 09:52] LABS: ALT/SGPT 13 U/L (12-78); AST/SGOT 11 U/L (15-37); Alkaline Phosphatase 76 U/L (45-117); BUN Blood Urea Nitrogen 9 mg/dL (7-18); Bicarbonate 27 mmol/L (21-32); Bilirubin Direct 0.2 mg/dL (0-0.2); Bilirubin Total 0.6 mg/dL (0.2-1.0); Glucose Level 77 mg/dL (74-106); Lipase 58 U/L (73-393); Potassium 3.6 mmol/L (3.5-5.1); Protein, Total 7.9 g/dL (6.4-8.2); Sodium Level 141 mmol/L (136-145)
[2019-08-03 09:56] LABS: Urine Blood NEGATIVE (NEG); Urine Glucose NEGATIVE (NEG); Urine Protein NEGATIVE (NEG); Urine Specific Gravity >1.030 (1.005-1.030); Urine pH 5.5 (5.0-7.0)
--- NOTE | 2019-08-03 10:57 | RAD REPORT ---
EXAM DESCRIPTION: CTAbdomen Pelvis W Contrast - 08/03/2019 10:48 am CLINICAL HISTORY: Abdominal pain. ABD PAIN COMPARISON: No comparisonsNo comparisons TECHNIQUE: Biphasic CT imaging of the abdomen and pelvis was performed with 100 ml non-ionic IV cont rast. All CT scans are performed using dose optimization technique as appropriate and may include automated exposure control or mA/KV adjustment according to patient size. FINDINGS: The lung bases are clear. The liver, spleen, pancreas, adrenal glands and kidneys are within normal limits. No bowel obstruction, free air, free fluid or abscess. The appendix is normal. No evidence of signi ficant lymphadenopathy. The gynecological structures have a somewhat edematous/boggy appearance. No suspicious bony findings. IMPRESSION: A nonspecific boggy/ edematous appearance to the gynecologic structures noted. Suggest c linical correlation for the possibility of pelvic infection. Otherwise, no acute abnormality is detec susy.
--- NOTE | 2019-08-03 13:53 | RAD REPORT ---
EXAM DESCRIPTION: US - Transvaginal Study Probe - 08/03/2019 1:30 pm CLINICAL HISTORY: Abdominal pain COMPARISON: none FINDINGS: The uterus measures 10 x 6 x 7cm. A fibroid is not seen. The endometrial stripe measures 1 centimeter Small amount of fluid is present within cervical canal The ovaries are normal in size and echotexture. No significant free fluid is seen. IMPRESSION: No significant abnormalities splayed
--- NOTE | 2019-08-03 13:57 | ER ---
Nurse's Notes [facility] Name: Winston Hussein Age: 34 yrs Sex: Female : 1985 Arrival Date: 08/03/2019 Time: 08:29 Bed 14 Private MD: Diagnosis: Acute upper respiratory infection, unspecified;Lower abdominal pain, unspecified Presentation: 08/03 08:46 Presenting complaint: Patient states: lower abd cramping that is worse to LLQ that aa5 began 1 week ago. Pt also c/o sore throat that began yesterday and headache today. Pt also reports cough and nausea. Denies vomiting/diarrhea. Transition of care: patient was not received from another setting of care. Onset of symptoms was July 2019. Risk Assessment: Do you want to hurt yourself or someone else? Patient reports no desire to harm self or others. Initial Sepsis Screen: Does the patient meet any 2 criteria? No. Patient's initial sepsis screen is negative. Does the patient have a suspected source of infection? No. Patient's initial sepsis screen is negative. Care prior to arrival: None. 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 - Social history:: Smoking status: Patient/guardian denies using tobacco. - Ebola Screening: : No symptoms or risks identified at this time. Screenin:14 Abuse screen: Denies threats or abuse. Denies injuries from another. Nutritional jl7 screening: No deficits noted. Tuberculosis screening: No symptoms or risk factors identified. Fall Risk IV access (20 points). Total Casanova Fall Scale indicates No Risk (0-24 pts). Assessment: 09:14 General: Appears in no apparent distress. uncomfortable, Behavior is calm, cooperative, jl7 appropriate for age. Pain: Complains of pain in suprapubic area and left lower quadrant Pain does not radiate. Pain currently is 5 out of 10 on a pain scale. Quality of pain is described as crampy, Is intermittent. Neuro: Level of Consciousness is awake, alert, obeys commands, Oriented to person, place, time, situation. Cardiovascular: Patient's skin is warm and dry. Respiratory: Airway is patent Respiratory effort is even, unlabored, Respiratory pattern is regular, symmetrical. GI: Abdomen is round non-distended, Bowel sounds present X 4 quads. Abd is soft X 4 quads Abdomen is tender to palpation in suprapubic area and left lower quadrant. : No signs and/or symptoms were reported regarding the genitourinary system. EENT: No signs and/or symptoms were reported regarding the EENT system. Derm: Skin is pink, warm \T\ dry. Musculoskeletal: No signs and/or symptoms reported regarding the musculoskeletal system. 10:00 Reassessment: Patient appears in no apparent distress at this time. No changes from jl7 previously documented assessment. Patient and/or family updated on plan of care and expected duration. Pain level reassessed. Patient is alert, oriented x 3, equal unlabored respirations, skin warm/dry/pink. 11:00 Reassessment: Patient appears in no apparent distress at this time. Patient and/or jl7 family updated on plan of care and expected duration. Pain level reassessed. Patient is alert, oriented x 3, equal unlabored respirations, skin warm/dry/pink. 12:00 Reassessment: Patient appears in no apparent distress at this time. Patient and/or jl7 family updated on plan of care and expected duration. Pain level reassessed. Patient is alert, oriented x 3, equal unlabored respirations, skin warm/dry/pink. 13:30 Reassessment: Pt requesting to remove IV because it feels sore. No redness or swelling jl7 noted, IV backed out a little bit and pt reports decreased pain, IV dressing changed and I told pt as soon as results are back and no IV medication is needed we will DC the IV, Pt verbalized understanding. Vital Signs: 08:48 BP 117 / 88; Pulse 88; Resp 16 S; Temp 98.4(O); Pulse Ox 100% on R/A; Weight 72.57 kg aa5 (R); Height 5 ft. 3 in. (160.02 cm) (R); Pain 5/10; 12:17 BP 128 / 86; Pulse 72; Resp 16; Temp 97.6(TE); Pulse Ox 100% on R/A; mh5 13:50 BP 129 / 92; Pulse 80; Resp 16 S; Pulse Ox 100% on R/A; jl7 08:48 Body Mass Index 28.34 (72.57 kg, 160.02 cm) aa5 ED Course: 08:29 Patient arrived in ED. rg4 08:47 Triage completed. aa5 08:47 Arm band placed on. aa5 08:51 Chery Morocho FNP-C is PHCP. kb 08:51 Roverto Moon MD is Attending Physician. kb 08:55 Bryce Up, YRN is Primary Nurse. jl7 09:08 Patient has correct armband on for positive identification. Bed in low position. Call [facility] light in reach. Warm blanket given. Pulse ox on. NIBP on. 09:08 Urine collected: clean catch specimen, clear. [facility] 09:08 Flu and/or RSV swab sent to lab. Strep swab sent to lab. 09:14 Initial lab(s) drawn, by tn, sent to lab. Inserted saline lock: 22 gauge in left 7 antecubital area, using aseptic technique. Blood collected. 10:59 CT Abd/Pelvis - IV Contrast Only In Process Unspecified. EDMS 13:32 US Transvaginal Study (Probe) In Process Unspecified. EDMS 14:09 No provider procedures requiring assistance completed. IV discontinued, intact, jl7 bleeding controlled, No redness/swelling at site. Pressure dressing applied. Administered Medications: No medications were administered Outcome: 13:56 Discharge ordered by . kb 14:09 Discharged to home ambulatory. jl7 14:09 Condition: stable 14:09 Discharge instructions given to patient, Instructed on discharge instructions, follow up and referral plans. Demonstrated understanding of instructions, follow-up care. 14:10 Patient left the ED. jl7 Signatures: Dispatcher [employer] EDMS Chery Morocho FNP-C FNP-Ckb Gay, Steven, RN YRN Huong Stone RN RN Clementine Ramos 4 Brittni Joseph [facility] Bryce Up RN RN jl7
--- NOTE | 2019-08-03 13:57 | EDPHYS ---
Physician Documentation [facility] Name: Winston Hussein Age: 34 yrs Sex: Female : 1985 Arrival Date: 08/03/2019 Time: 08: Bed 14 Private MD: ED Physician Roverto Moon HPI: 08/03 10:00 This 34 yrs old Black Female presents to ER via Ambulatory with complaints of Abdominal kb Cramping, Headache, Sore Throat. 10:00 The patient presents with abdominal pain in the left lower quadrant. Onset: The kb symptoms/episode began/occurred 3 day(s) ago. The symptoms do not radiate. Associated signs and symptoms: Pertinent positives: headache, cough, congestion, sore throat. The symptoms are described as achy. Modifying factors: The symptoms are alleviated by nothing, the symptoms are aggravated by nothing. Severity of pain: At its worst the pain was moderate in the emergency department the pain is unchanged. The patient has not experienced similar symptoms in the past. The patient has been recently seen at an urgent care, yesterday. Pt reports left abd pain, sore throat, cough, headache, and congestion that started 3 days ago. Went to yesterday and was told it was probably an ovarian cyst so she needed to come here for an US. 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 - Social history:: Smoking status: Patient/guardian denies using tobacco. - Ebola Screening: : No symptoms or risks identified at this time. ROS: 09:58 Constitutional: Negative for fever, chills, and weight loss, Neck: Negative for injury, kb pain, and swelling, Cardiovascular: Negative for chest pain, palpitations, and edema, Back: Negative for injury and pain, MS/Extremity: Negative for injury and deformity, Skin: Negative for injury, rash, and discoloration. 09:58 ENT: Positive for rhinorrhea, sinus congestion, sore throat, Negative for 09:58 Respiratory: Positive for cough, Negative for dyspnea on exertion, hemoptysis, orthopnea, pleurisy, shortness of breath, sputum production, wheezing. 09:58 Abdomen/GI: Positive for abdominal pain. 09:58 Neuro: Positive for headache. Exam: 09:58 Constitutional: This is a well developed, well nourished patient who is awake, alert, kb and in no acute distress. Head/Face: Normocephalic, atraumatic. Neck: Trachea midline, no thyromegaly or masses palpated, and no cervical lymphadenopathy. Supple, full range of motion without nuchal rigidity, or vertebral point tenderness. No Meningismus. Chest/axilla: Normal chest wall appearance and motion. Nontender with no deformity. No lesions are appreciated. Cardiovascular: Regular rate and rhythm with a normal S1 and S2. No gallops, murmurs, or rubs. Normal PMI, no JVD. No pulse deficits. Respiratory: Lungs have equal breath sounds bilaterally, clear to auscultation and percussion. No rales, rhonchi or wheezes noted. No increased work of breathing, no retractions or nasal flaring. Back: No spinal tenderness. No costovertebral tenderness. Full range of motion. Skin: Warm, dry with normal turgor. Normal color with no rashes, no lesions, and no evidence of cellulitis. MS/ Extremity: Pulses equal, no cyanosis. Neurovascular intact. Full, normal range of motion. Neuro: Awake and alert, GCS 15, oriented to person, place, time, and situation. Cranial nerves II-XII grossly intact. Motor strength 5/5 in all extremities. Sensory grossly intact. Cerebellar exam normal. Normal gait. 09:58 Abdomen/GI: Inspection: abdomen appears normal, Bowel sounds: normal, in all quadrants, Palpation: soft, in all quadrants, moderate abdominal tenderness, in the left upper quadrant and left lower quadrant. Vital Signs: 08:48 BP 117 / 88; Pulse 88; Resp 16 S; Temp 98.4(O); Pulse Ox 100% on R/A; Weight 72.57 kg aa5 (R); Height 5 ft. 3 in. (160.02 cm) (R); Pain 5/10; 12:17 BP 128 / 86; Pulse 72; Resp 16; Temp 97.6(TE); Pulse Ox 100% on R/A; mh5 13:50 BP 129 / 92; Pulse 80; Resp 16 S; Pulse Ox 100% on R/A; jl7 08:48 Body Mass Index 28.34 (72.57 kg, 160.02 cm) aa5 MDM: 08:51 Patient medically screened. kb 09:59 Data reviewed: vital signs, nurses notes. Data interpreted: Pulse oximetry: on room air kb is 100 %. Interpretation: normal. 13:54 Counseling: I had a detailed discussion with the patient and/or guardian regarding: the kb historical points, exam findings, and any diagnostic results supporting the discharge/admit diagnosis, lab results, radiology results, the need for outpatient follow up, an OB/Gyne specialist, to return to the emergency department if symptoms worsen or persist or if there are any questions or concerns that arise at home. 14:01 ED course: Pt educated on need for follow up with ORDER PACKER. Verbal understanding received . kb 08/03 08:58 Order name: Basic Metabolic Panel; Complete Time: 09:55 kb 08/03 08:58 Order name: CBC with Diff; Complete Time: 09:38 kb 08/03 08:58 Order name: Hepatic Function; Complete Time: 09:55 kb 08/03 08:58 Order name: Lipase; Complete Time: 09:55 kb 08/03 08:58 Order name: [place] Screen Profile; Complete Time: 10:00 kb 08/03 08:58 Order name: Flu; Complete Time: 09:48 kb 08/03 08:58 Order name: IV Saline Lock; Complete Time: 09:14 kb 08/03 08:58 Order name: Labs collected and sent; Complete Time: 09:14 kb 08/03 08:58 Order name: Strep; Complete Time: 09:48 kb 08/03 09:13 Order name: Urine Dipstick--Ancillary (enter results); Complete Time: 09:57 bd 08/03 09:13 Order name: Urine --Ancillary (enter results); Complete Time: 09:57 bd 08/03 09:51 Order name: Throat Culture EDMS 08/03 10:00 Order name: CT Abd/Pelvis - IV Contrast Only; Complete Time: 11:05 kb 08/03 11:34 Order name: US Transvaginal Study (Probe); Complete Time: 13:59 kb 08/03 08:59 Order name: Urine Dipstick-Ancillary (obtain specimen); Complete Time: 09:08 kb Administered Medications: No medications were administered Disposition: 19:01 Co-signature as Attending Physician, Roverto Moon MD. rn Disposition: 08/03/19 13:56 Discharged to Home. Impression: Acute upper respiratory infection, unspecified, Lower abdominal pain, unspecified. - Condition is Stable. - Discharge Instructions: Upper Respiratory Infection, Adult, [id number]. - Work release form, Medication Reconciliation Form, Thank You Letter, Antibiotic Education, Prescription Opioid Use form. - Follow up: Emergency Department; When: As needed; Reason: Worsening of condition. Follow up: Private Physician; When: 2 - 3 days; Reason: Recheck today's complaints, Continuance of care, Re-evaluation by your physician. Signatures: Dispatcher [employer] EDMS Chery Morocho, CLAY MACHINE OPERATOR-C CLAY MACHINE OPERATOR-Ckb Roverto Moon MD MD rn Calderon, Audri, RN RN aa5 Bryce Up RN RN jl7 Corrections: (The following items were deleted from the chart) 14:10 13:56 08/03/2019 13:56 Discharged to Home. Impression: Acute upper respiratory jl7 infection, unspecified; Lower abdominal pain, unspecified. Condition is Stable. Forms are Medication Reconciliation Form, Thank You Letter, Antibiotic Education, Prescription Opioid Use. Follow up: Emergency Department; When: As needed; Reason: Worsening of condition. Follow up: Private Physician; When: 2 - 3 days; Reason: Recheck today's complaints, Continuance of care, Re-evaluation by your physician. kb
[2019-08-03 14:26] VITALS: O2SAT 100
[2019-08-03 14:27] VITALS: TEMP 97.6
[2019-08-03 14:29] VITALS: BP 129/92
== END 2019-08-03 14:10 | disposition home or self-care (01) ==
LOC: ER 08:26
DX: J06.9 Acute upper respiratory infection, unspecified (principal)
CPT/HCPCS: 87070; 85025; 80048; 36415; 86308; 81025; 80076; 87081; 81003; 83690; 87804 ×2; 74177; 76830; 99284; Q9967

== ENCOUNTER 2023-01-17 18:17 | Emergency (ER) | payer BC, OTHER ==
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
[2023-01-17 19:04] LABS: Absolute Lymphocytes (CBC) 2.1 K/uL (0.7-4.9); Hematocrit 36.6 % (36.0-45.0); Lymphocytes % 33.7 % (15.3-44.8); MCV 74.5 fL (80-100); RBC Red Blood Cell Count 4.91 M/uL (3.86-4.86)
[2023-01-17 19:09] LABS: Protime INR 1.1
[2023-01-17 19:20] LABS: Albumin 4.1 g/dL (3.4-5.0); Bilirubin Total 0.2 mg/dL (0.2-1.0); Potassium 3.8 mmol/L (3.5-5.1); Protein, Total 8.3 g/dL (6.4-8.2)
[2023-01-17 19:39] LABS: Urine Blood Negative (Negative); Urine Glucose Negative (Negative); Urine Protein Negative (Negative); Urine Specific Gravity >=1.030 (1.005-1.030); Urine pH 5.5 (5.0-7.0)
[2023-01-17 20:02] LABS: Urine Bacteria None Seen /HPF (<20); Urine Mucus Slight /HPF (None Seen); Urine RBC <5 /HPF (None Seen)
[2023-01-17 20:08] LABS: SARS-COV-2 RT PCR POSITIVE (NEGATIVE)
[2023-01-17 20:23] LABS: Urine Specific Gravity/Preg >1.030 (1.005-1.030)
--- NOTE | 2023-01-17 21:08 | RAD REPORT ---
EXAM DESCRIPTION: Humberto Single View01/17/2023 8:57 pm CLINICAL HISTORY: COUGH COMPARISON: No comparisons TECHNIQUE: Portable AP view of the chest. FINDINGS: The lungs are clear. Mild central interstitial prominence. No pneumothorax or effusion. T he cardiomediastinal contours are unremarkable. IMPRESSION: Mild central interstitial prominence, could reflect mild vascular congestion. No other a cute cardiopulmonary process.
--- NOTE | 2023-01-17 21:50 | RAD REPORT ---
EXAM DESCRIPTION: CT - Abdomen Pelvis W Contrast - 01/17/2023 9:29 pm CLINICAL HISTORY: LOWER GI BLEED COMPARISON: Abdomen Pelvis W Contrast dated 08/03/2019 TECHNIQUE: Thin cut axial CT imaging of the abdomen and pelvis was performed following intravenous a dministration of Isovue 300. Multiplanar reformats were generated and reviewed. All CT scans are performed using dose optimization technique as appropriate and may include automated exposure control or mA/KV adjustment according to patient size. FINDINGS: No suspicious findings in the lung bases. The liver, spleen, and pancreas show no suspicious findings. Gallbladder and biliary tree are also wi thout suspicious finding. Symmetric renal function is seen with no hydronephrosis or suspicious renal mass. No dilated bowel loops or bowel wall thickening. No free air, free fluid or inflammatory stranding. N o mass or bulky lymphadenopathy. Small umbilical hernia containing part of small bowel wall, without evidence of obstruction. The urinary bladder is suboptimally distended, limiting evaluation. Slightly bulky appearance of the uterus. No suspicious bony findings. IMPRESSION: No acute intra-abdominal process.
--- NOTE | 2023-01-17 22:27 | EDPHYS ---
Physician Documentation [facility] Name: Winston Husseni Age: 37 yrs Sex: Female : 1985 Arrival Date: 01/17/2023 Time: 18:29 Bed 17 Private MD: ED Physician Slim Contreras HPI: 01/17 18:50 This 37 yrs old Black Female presents to ER via Ambulatory with complaints of Chest cp Pain, Sore Throat, Cough, Bloody Stools. 18:50 The patient or guardian reports cough, that is intermittent, with no sputum, chest pain cp from cough. Onset: The symptoms/episode began/occurred yesterday. 18:50 Associated signs and symptoms: Pertinent positives: sore throat. Patient also presents cp with complaints of blood in stools times 1 week. Denies abdominal pain, constipation and diarrhea. Historical: - Allergies: 18:40 No Known Allergies; ld1 - PMHx: 18:40 None; ld1 - PSHx: 18:40 section; ld1 - Immunization history:: Adult Immunizations up to date, Client reports receiving the 2nd dose of the Covid vaccine. - Social history:: Smoking status: Patient denies any tobacco usage or history of. Patient/guardian denies using alcohol. ROS: 18:55 Constitutional: Positive for body aches, Negative for fever, poor PO intake. cp 18:55 Eyes: Negative for injury, pain, redness, and discharge. cp 18:55 ENT: Positive for sore throat, Negative for drainage from ear(s), ear pain, difficulty swallowing, difficulty handling secretions. 18:55 Cardiovascular: Positive for chest pain, with cough, Negative for edema, palpitations. 18:55 Respiratory: Positive for cough, "sounds productive", Negative for wheezing. 18:55 Abdomen/GI: Positive for nausea, rectal bleeding, Negative for abdominal pain, vomiting, diarrhea, constipation. 18:55 Neuro: Negative for altered mental status, syncope, weakness. 18:55 All other systems are negative. Exam: 18:55 ECG was reviewed by the Attending Physician. cp 19:00 Constitutional: The patient appears in no acute distress, alert, awake, cp non-diaphoretic, non-toxic, well developed, well nourished. 19:00 Head/Face: Normocephalic, atraumatic. cp 19:00 Eyes: Periorbital structures: appear normal, Conjunctiva: normal, no exudate, no injection, Sclera: no appreciated abnormality, Lids and lashes: appear normal, bilaterally. 19:00 ENT: External ear(s): are unremarkable, Ear canal(s): are normal, clear, TM's: dullness, bilaterally, Nose: is normal, Mouth: Lips: moist, Oral mucosa: pink and intact, moist, Posterior pharynx: Airway: no evidence of obstruction, patent, Tonsils: no enlargement, no exudate, swelling, is not appreciated, erythema, that is mild, exudate, is not appreciated. 19:00 Neck: ROM/movement: is normal, is supple, without pain, no range of motions limitations. 19:00 Chest/axilla: Inspection: normal. 19:00 Cardiovascular: Rate: normal, Rhythm: regular, Edema: is not appreciated, JVD: is not appreciated. 19:00 Respiratory: the patient does not display signs of respiratory distress, Respirations: normal, no use of accessory muscles, no retractions, labored breathing, is not present, Breath sounds: decreased breath sounds, are not appreciated, stridor, is not appreciated, + upper airway congestion. wheezing: is not appreciated. 19:00 Abdomen/GI: Inspection: abdomen appears normal, Bowel sounds: active, all quadrants, Palpation: soft, in all quadrants, nontender, in all quadrants. 19:00 Neuro: Orientation: to person, place \\T\\ time. Mentation: is normal, Motor: moves all fours, strength is normal, Sensation: is normal. 20:39 : Rectal exam: Stool: brown, soft, hemorrhoid(s), are not appreciated, mass, is not cp appreciated. Vital Signs: 18:38 BP 137 / 102; Pulse 80; Resp 18; Temp 97.6(O); Pulse Ox 100% on R/A; Weight 79.38 kg; ld1 Height 5 ft. 3 in. (160.02 cm); Pain 0/10; 20:19 BP 116 / 68; Pulse 81; Resp 16; Pulse Ox 100% on R/A; jb4 21:30 BP 98 / 59; Pulse 77; Resp 16; Pulse Ox 98% on R/A; jb4 22:00 BP 97 / 66; Pulse 74; Resp 16; Pulse Ox 97% on R/A; jb4 18:38 Body Mass Index 31.00 (79.38 kg, 160.02 cm) ld1 MDM: 18:44 Patient medically screened. cp 22:25 Data reviewed: vital signs, nurses notes, lab test result(s), EKG, radiologic studies, cp CT scan, plain films. 22:25 Differential diagnosis: bronchitis, flu, gastritis, hemorrhoids, COVID-19. cp Consideration of Admission/Observation Escalation of care including admission/observation considered. I considered the following discharge prescriptions or medication management in the emergency department Medications were administered in the Emergency Department. See MAR. 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 Response to treatment: the patient's symptoms have markedly improved after treatment, and as a result, I will discharge patient. 01/17 18:45 Order name: CBC with Diff; Complete Time: 20:05 01/17 20:41 Interpretation: RBC 4.91; HGB 11.6; MCV 74.5; MCH 23.6; MCHC 31.7; RDW 15.5. 01/17 18:45 Order name: CMP; Complete Time: 20:05 01/17 22:20 Interpretation: Normal except: CL 108. 01/17 18:45 Order name: Lipase; Complete Time: 20:05 01/17 18:45 Order name: Urine Microscopic Only; Complete Time: 20:05 01/17 18:45 Order name: COVID-19/FLU A+B; Complete Time: 20:40 01/17 20:41 Interpretation: Reviewed. 01/17 18:45 Order name: Strep; Complete Time: 20:05 01/17 18:45 Order name: Morgan Screen Profile; Complete Time: 20:05 01/17 18:45 Order name: PT-INR; Complete Time: 20:05 01/17 18:45 Order name: Ptt, Activated; Complete Time: 20:05 01/17 19:09 Order name: Throat Culture EDMS 01/17 19:40 Order name: Urine Dipstick-Ancillary; Complete Time: 20:05 [facility] 01/17 19:54 Order name: Urine --Ancillary (enter results); Complete Time: 20:40 ds4 01/17 20:06 Order name: CT Abd/Pelvis - IV Contrast Only; Complete Time: 21:57 cp 01/17 21:58 Interpretation: Report reviewed. 01/17 20:07 Order name: XRAY Chest (1 view); Complete Time: 21:57 01/17 21:58 Interpretation: Report review. 01/17 18:45 Order name: IV Saline Lock; Complete Time: 18:52 cp 01/17 18:45 Order name: Labs collected and sent; Complete Time: 18:52 01/17 18:45 Order name: Urine Dipstick-Ancillary (obtain specimen); Complete Time: 19:35 01/17 18:45 Order name: Urine Test (obtain specimen); Complete Time: 19:35 01/17 18:45 Order name: EKG; Complete Time: 18:46 01/17 18:45 Order name: EKG - Nurse/Tech; Complete Time: 18:52 cp EC:55 Rate is 74 beats/min. Rhythm is regular. IA interval is normal. QRS interval is normal. cp QT interval is normal. T waves are Inverted in lead aVR. Interpreted by me. Reviewed by me. Administered Medications: No medications were administered Disposition: 01/18 09:53 Co-signature as Attending Physician, Slim LOPEZ was immediately available on-site ms3 in the Emergency Department for consultation in the care of the patient. Disposition Summary: 01/17/23 22:26 Discharge Ordered Location: Home cp Problem: new cp Symptoms: have improved cp Condition: Stable cp Diagnosis - SARS-associated coronavirus as the cause of diseases classified elsewhere cp - Cough cp - Acute pharyngitis, unspecified cp - Blood in Stools cp - Anemia, unspecified cp Followup: cp - With: Joseph Garcia MD - When: 2 - 3 days - Reason: blood in stools Followup: cp - With: Private Physician - When: 2 - 3 days - Reason: COVID-19 Discharge Instructions: - Discharge Summary Sheet cp - Cool Mist Vaporizer cp - Form - Excuse from Work, School, or Physical Activity cp - COVID-19 cp - Things to Know about the COVID-19 Pandemic - [facility] cp - 10 Things You Can Do to Manage Your COVID-19 Symptoms at Home - [facility] cp - COVID-19: Quarantine vs. Isolation - [facility] cp - Prevent the Spread of COVID-19 if You Are Sick - [facility] cp Forms: - Medication Reconciliation Form cp - Thank You Letter cp - Antibiotic Education cp - Prescription Opioid Use cp - Work release form jb4 Prescriptions: - Paxlovid (EUA) 150 mg x 2- 100 mg Oral tablet - take 3 tablet by ORAL route 2 times per day for 5 days per package directions; cp 30 tablet; Refills: 0, Product Selection Permitted - Bromfed DM 2-30-10 mg/5 mL Oral syrup - take 10 milliliter by ORAL route every 6 hours; 180 milliliter; Refills: 0, cp Product Selection Permitted Signatures: Dispatcher [employer] EDMS Tal Reynoso PA PA cp Sims, Marcus, DO DO ms3 Jocelynn Castillo RN RN ld1
--- NOTE | 2023-01-17 22:27 | ER ---
Nurse's Notes [facility] Name: Winston Hussein Age: 37 yrs Sex: Female : 1985 Arrival Date: 01/17/2023 Time: 18:29 Bed 17 Private MD: Diagnosis: SARS-associated coronavirus as the cause of diseases classified elsewhere;Cough;Acute pharyngitis, unspecified;Blood in Stools;Anemia, unspecified Presentation: 01/17 18:38 Chief complaint: Patient states: Chest pain, cough, sore throat X 1 day. Blood in ld1 stools X 1 week. Nausea. Pt states "I don't think its my heart, I think its from coughing.". Coronavirus screen: At this time, the client does not indicate any symptoms associated with coronavirus-19. Ebola Screen: No symptoms or risks identified at this time. Initial Sepsis Screen: Does the patient meet any 2 criteria? No. Patient's initial sepsis screen is negative. Does the patient have a suspected source of infection? No. Patient's initial sepsis screen is negative. Risk Assessment: Do you want to hurt yourself or someone else? Patient reports no desire to harm self or others. Onset of symptoms was January 17, 2023. 18:38 Method Of Arrival: Ambulatory ld1 18:38 Acuity: SINDY 3 ld1 Triage Assessment: 18:40 General: Appears in no apparent distress. comfortable, Behavior is calm, cooperative, ld1 appropriate for age. Pain: Denies pain. EENT: No signs and/or symptoms were reported regarding the EENT system. Neuro: Level of Consciousness is awake, alert, obeys commands, Oriented to person, place, time, situation, Appropriate for age. Cardiovascular: Capillary refill < 3 seconds Patient's skin is warm and dry. Respiratory: Reports cough that is non-productive, Airway is patent Respiratory effort is even, unlabored. GI: Abdomen is round non-distended, Reports bloody stool, nausea, Patient currently denies abdominal pain, diarrhea. Historical: - Allergies: 18:40 No Known Allergies; ld1 - PMHx: 18:40 None; ld1 - PSHx: 18:40 section; ld1 - Immunization history:: Adult Immunizations up to date, Client reports receiving the 2nd dose of the Covid vaccine. - Social history:: Smoking status: Patient denies any tobacco usage or history of. Patient/guardian denies using alcohol. Screenin:15 [facility] ED Fall Risk Assessment (Adult) History of falling in the last 3 months, jb4 including since admission No falls in past 3 months (0 pts) Confusion or Disorientation No (0 pts) Score/Fall Risk Level 0 - 2 = Low Risk Oriented to surroundings, Maintained a safe environment. Abuse screen: Denies threats or abuse. Nutritional screening: No deficits noted. Tuberculosis screening: No symptoms or risk factors identified. Assessment: 19:15 Reassessment: Patient appears in no apparent distress at this time. Patient and/or jb4 family updated on plan of care and expected duration. Pain level reassessed. Patient is alert, oriented x 3, equal unlabored respirations, skin warm/dry/pink. 20:07 Reassessment: positive COVID test, notified Page MARCELA. aa9 20:19 Reassessment: Patient appears in no apparent distress at this time. Patient and/or jb4 family updated on plan of care and expected duration. Pain level reassessed. Patient is alert, oriented x 3, equal unlabored respirations, skin warm/dry/pink. 20:38 Reassessment: chaperoned [place] MEDRANO for rectal exam, pt tolerated well. aa9 21:18 Reassessment: Patient appears in no apparent distress at this time. Patient and/or jb4 family updated on plan of care and expected duration. Pain level reassessed. Patient is alert, oriented x 3, equal unlabored respirations, skin warm/dry/pink. Pt to CT. 22:14 Reassessment: Patient appears in no apparent distress at this time. Patient and/or jb4 family updated on plan of care and expected duration. Pain level reassessed. Patient is alert, oriented x 3, equal unlabored respirations, skin warm/dry/pink. Vital Signs: 18:38 BP 137 / 102; Pulse 80; Resp 18; Temp 97.6(O); Pulse Ox 100% on R/A; Weight 79.38 kg; ld1 Height 5 ft. 3 in. (160.02 cm); Pain 0/10; 20:19 BP 116 / 68; Pulse 81; Resp 16; Pulse Ox 100% on R/A; jb4 21:30 BP 98 / 59; Pulse 77; Resp 16; Pulse Ox 98% on R/A; jb4 22:00 BP 97 / 66; Pulse 74; Resp 16; Pulse Ox 97% on R/A; jb4 18:38 Body Mass Index 31.00 (79.38 kg, 160.02 cm) ld1 ED Course: 18:29 Patient arrived in ED. am2 18:31 Tal Reynoso PA is PHCP. cp 18:31 Slim Contreras DO is Attending Physician. cp 18:40 Triage completed. ld1 18:40 Arm band placed on right wrist. ld1 18:46 Strep Sent. ld1 18:46 COVID-19/FLU A+B Sent. ld1 18:52 Inserted saline lock: 20 gauge in left antecubital area, using aseptic technique. Blood ld1 collected. 18:52 Strep Sent. ld1 18:52 COVID-19/FLU A+B Sent. ld1 18:52 CBC with Diff Sent. ld1 18:53 CMP Sent. ld1 18:53 Lipase Sent. ld1 18:53 Ptt, Activated Sent. ld1 18:53 PT-INR Sent. ld1 19:15 Patient has correct armband on for positive identification. Bed in low position. Call jb4 light in reach. Side rails up X 1. Client placed on continuous cardiac and pulse oximetry monitoring. NIBP monitoring applied. 20:18 Aguila Nichols, RN is Primary Nurse. jb4 20:59 XRAY Chest (1 view) In Process Unspecified. EDMS 21:39 CT Abd/Pelvis - IV Contrast Only In Process Unspecified. EDMS 22:24 Joseph Garcia MD is Referral Physician. cp 22:43 No provider procedures requiring assistance completed. IV discontinued, intact, jb4 bleeding controlled, No redness/swelling at site. Pressure dressing applied. Patient maintains SpO2 saturation greater than 95% on room air. Administered Medications: No medications were administered Outcome: 22:26 Discharge ordered by . cp 22:43 Discharged to home ambulatory, with family. jb4 22:43 Condition: stable 22:43 Discharge instructions given to patient, Instructed on discharge instructions, follow up and referral plans. medication usage, Demonstrated understanding of instructions, follow-up care, medications, Prescriptions given X 2. 22:44 Patient left the ED. jb4 Signatures: Dispatcher [employer] EDMS Tal Reynoso PA PA cp Bryson, James RN RN jb4 Juani Macias am2 Jocelynn Castillo RN RN ld1 Ambar Stevens RN RN aa9 Corrections: (The following items were deleted from the chart) 18:45 18:38 Chief complaint: Patient states: Chest pain, cough, sore throat X 1 day. Blood in ld1 stools X 1 week. Nausea. ld1
[2023-01-17 23:56] VITALS: TEMP 97.6
[2023-01-17 23:59] VITALS: BP 97/66; O2SAT 97
--- NOTE | 2023-01-18 12:50 | EKG ---
Test Date: 2023-01-17 Test Time: 18:50:11 Route Sales Associate: MEASUREMENT RESULTS: Intervals: Rate: 74 MA: 160 QRSD: 82 QT: 378 QTc: 419 [place]: P: 53 MA: 160 QRS: 59 T: 41 INTERPRETIVE STATEMENTS: Normal sinus rhythm Normal ECG No previous ECG available for comparison Electronically Signed On 01-18-23 12:49:20 COMMERCIAL CORRESPONDENT by Keenan Shanks
== END 2023-01-17 22:44 | disposition home or self-care (01) ==
LOC: ER 18:17
DX: U07.1 COVID-19 (principal); D64.9 Anemia, unspecified; J02.9 Acute pharyngitis, unspecified; K92.1 Melena
CPT/HCPCS: 93005; 87070; 85025; 36415; 86308; 81025; 85610; 87081; 85730; 83690; 80053; 0240U; 74177; 71045; 99284; Q9967; 81003; 81015

== ENCOUNTER 2024-03-25 14:51 | Emergency (ER) | payer BC, SELFPAY ==
--- NOTE | 2024-03-25 15:37 | ER ---
Nurse's Notes [facility] Name: Winston Hussein Age: 38 yrs Sex: Female : 1985 Arrival Date: 03/25/2024 Time: 14:51 Bed 10 Private MD: Diagnosis: Other infective otitis externa, right ear Presentation: 03/25 15:08 Chief complaint: Patient states: Having trouble hearing with right ear since Tuesday, nj1 not getting better, has used peroxide and over the counter ear drops. Does not hurt unless she messes with it. Coronavirus screen: Vaccine status: Patient reports receiving the 2nd dose of the covid vaccine. Ebola Screen: Patient denies travel to an Ebola-affected area in the 21 days before illness onset. Initial Sepsis Screen: Does the patient meet any 2 criteria? No. Patient's initial sepsis screen is negative. Does the patient have a suspected source of infection? No. Patient's initial sepsis screen is negative. Risk Assessment: Do you want to hurt yourself or someone else? Patient reports no desire to harm self or others. Onset of symptoms was March 19, 2024. 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 - Infectious Disease History:: Denies. - Social history:: Smoking status: Patient denies any tobacco usage or history of. Screenin:51 [facility] ED Fall Risk Assessment (Adult) History of falling in the last 3 months, ll1 including since admission No falls in past 3 months (0 pts) Confusion or Disorientation No (0 pts) Intoxicated or Sedated No (0 pts) Impaired Gait No (0 pts) Mobility Assist Device Used No (0 pt) Altered Elimination No (0 pt) Score/Fall Risk Level 0 - 2 = Low Risk Maintained a safe environment, Hourly rounding (assess needs \T\ fall precautionary measures) done. Abuse screen: Denies threats or abuse. Nutritional screening: No deficits noted. Tuberculosis screening: No symptoms or risk factors identified. Assessment: 15:50 General: Appears uncomfortable, Behavior is calm, cooperative, appropriate for age. ll1 Pain: Complains of pain in right ear Quality of pain is described as aching. EENT: Reports pain in right ear. Vital Signs: 15:08 BP 114 / 80; Pulse 74; Resp 16; Temp 98.9(O); Pulse Ox 99% ; Weight 83.01 kg; Height 5 nj1 ft. 3 in. ; 15:08 Body Mass Index 32.42 (83.01 kg, 160.02 cm) nj1 ED Course: 14:53 Patient arrived in ED. ra3 15:10 Triage completed. nj1 15:11 Arm band placed on right wrist. nj1 15:12 Corrie Hill PA-C is PHCP. sb4 15:12 Tal Ji MD is Attending Physician. sb4 15:36 hSayy Graves MD is Referral Physician. sb4 15:51 Patient has correct armband on for positive identification. Call light in reach. ll1 15:51 No provider procedures requiring assistance completed. Patient did not have IV access ll1 during this emergency room visit. 16:12 Provided Education on: 4 drops of antibiotics given to R ear 3 times a day for 7 days. ll1 Administered Medications: 15:50 Drug: Qdbelyft-Gvfnqnumg-SU Otic Drops 4 drops Otic in right ear once Route: Otic; ll1 Site: right ear; 16:00 Follow up: Response: No adverse reaction ll1 Medication: 15:51 VIS not applicable for this client. ll1 Outcome: 15:37 Discharge ordered by . sb4 16:00 Patient left the ED. ll1 16:00 Discharged to home ambulatory, ll1 16:00 Condition: stable 16:00 Discharge instructions given to patient, Instructed on discharge instructions, follow up and referral plans. medication usage, Demonstrated understanding of instructions, follow-up care, medications, Signatures: Chente Hutchinson RN RN ll1 Corrie Hill PA-C PA-C sb4 Haydee Roberts RN RN nj1 Aliza Buckley ra3
--- NOTE | 2024-03-25 15:37 | EDPHYS ---
Physician Documentation [facility] Name: Winston Hussein Age: 38 yrs Sex: Female : 1985 Arrival Date: 03/25/2024 Time: 14:51 Bed 10 Private MD: Tal Correa HPI: 03/25 17:49 This 38 yrs old Black Female presents to ER via Ambulatory with complaints of Drainage sb4 From Ear. 17:49 The patient presents with drainage, a fullness, hearing loss, partial. The complaints sb4 affect the right ear. Onset: The symptoms/episode began/occurred 1 week(s) ago. Modifying factors: The symptoms are alleviated by nothing, the symptoms are aggravated by nothing. Associated signs and symptoms: The patient has no apparent associated signs or symptoms. The patient has not experienced similar symptoms in the past. The patient has not recently seen a physician. TURNER IN: 15:51 LMP N/A - control method, Not ll1 Historical: - Allergies: 15:10 No Known Allergies; nj1 - PMHx: 15:10 None; nj1 - PSHx: 15:10 section; Hernia repairs x 3 (Unknown); nj1 - Immunization history:: Client reports receiving the 2nd dose of the Covid vaccine. - Infectious Disease History:: Denies. - Social history:: Smoking status: Patient denies any tobacco usage or history of. ROS: 17:49 Constitutional: Negative for fever, chills, and weight loss, sb4 17:49 ENT: Positive for drainage from ear(s), ear pain, 17:49 All other systems are negative, Exam: 17:49 Constitutional: This is a well developed, well nourished patient who is awake, alert, sb4 and in no acute distress. Head/Face: Normocephalic, atraumatic. Eyes: Extra-ocular motions intact. Periorbital areas with no swelling, redness, or edema. Skin: Warm, dry with normal turgor. Normal color with no rashes, no lesions, and no evidence of cellulitis. MS/ Extremity: Pulses equal, no cyanosis. Neurovascular intact. Full, normal range of motion. 17:49 ENT: Ear canal(s): erythema, that is minimal, of the right canal, purulent discharge, that is moderate, in the right canal, TM's: not visable, because of cerumen, because of discharge, Examination of the other ear shows no obvious abnormality, Vital Signs: 15:08 BP 114 / 80; Pulse 74; Resp 16; Temp 98.9(O); Pulse Ox 99% ; Weight 83.01 kg; Height 5 nj1 ft. 3 in. ; 15:08 Body Mass Index 32.42 (83.01 kg, 160.02 cm) nj1 MDM: 15:12 Patient medically screened. sb4 17:49 Data reviewed: vital signs, nurses notes, and as a result, I will discharge patient. sb4 Counseling: I had a detailed discussion with the patient and/or guardian regarding the historical points, exam findings, and any diagnostic results supporting the discharge/admit diagnosis, the need for outpatient follow up, for definitive care, to return to the emergency department if symptoms worsen or persist or if there are any questions or concerns that arise at home. Administered Medications: 15:50 Drug: [id number] Otic Drops 4 drops Otic in right ear once Route: Otic; ll1 Site: right ear; 16:00 Follow up: Response: No adverse reaction ll1 Disposition Summary: 03/25/24 15:37 Discharge Ordered Notes: Location: Home sb4 Problem: new sb4 Symptoms: have improved sb4 Condition: Stable sb4 Diagnosis - Other infective otitis externa, right ear sb4 Followup: sb4 - With: Shayy Graves MD - When: As needed - Reason: Recheck today's complaints, Re-evaluation by your physician Discharge Instructions: - Discharge Summary Sheet sb4 - Otitis Externa, [id number] sb4 Forms: - Medication Reconciliation Form sb4 - Patient Portal Instructions sb4 - Leadership Thank You Letter sb4 Signatures: Chente Hutchinson RN RN ll1 Corrie Hill PA-C PA-C sb4 Haydee Roberts RN RN nj1
[2024-03-25] MEDS ORDERED: NEOMY/POLY/HC 1% OTIC DROPS ONE (15:44)
[2024-03-25 16:30] VITALS: BP 114/80; TEMP 98.9; O2SAT 99
== END 2024-03-25 16:00 | disposition home or self-care (01) ==
LOC: ER 14:51
DX: H60.391 Other infective otitis externa, right ear (principal)
CPT/HCPCS: 99283